=== PATIENT | female | born 1965 | race African-American/Black ===

== ENCOUNTER 2020-07-27 14:25 | Outpatient (CLI) | payer OTHER, SELFPAY ==
--- NOTE | ~2020-07-27 | MM_ITS ---
EXAMINATION: MM screening [facility] BI w shweta HISTORY: Screening mammogram TECHNIQUE: Craniocaudal and mediolateral oblique 3-D tomosynthesis images were obtained and synthetic 2-D images were generated. CAD analysis was submitted and interpreted. COMPARISON: 04/20/2019, 04/15/2018, 04/13/2017 BREAST PARENCHYMAL COMPOSITION: There are scattered areas of fibroglandular density. FINDINGS: There is no evidence of suspicious mass, calcification, or architectural distortion to sugg est malignancy in either breast. There has been no suspicious interval change. IMPRESSION: 1. No mammographic evidence of malignancy. 2. Recommend routine screening mammography in one year. BI-RADS Category 1: Negative Reviewed, dictated and finalized at location A.
== END 2020-07-27 14:26 | disposition home or self-care (01) ==
LOC: ANHIMG 14:27
PROVIDERS: PCP Family Medicine; Visit Provider Family Medicine
DX: Z12.31 Encounter for screening mammogram for malignant neoplasm of breast (principal)
CPT/HCPCS: 77063; 77067

== ENCOUNTER 2021-09-09 14:45 | Outpatient (CLI) | payer OTHER, SELFPAY ==
--- NOTE | ~2021-09-09 | MM_ITS ---
EXAMINATION: MM screening [facility] BI w shweta HISTORY: Screening mammogram TECHNIQUE: Craniocaudal and mediolateral oblique 3-D tomosynthesis images were obtained and synthetic 2-D images were generated. CAD analysis was submitted and interpreted. COMPARISON: 07/27/2020, 04/20/2019, 04/15/2018 bilateral screening mammogram examinations BREAST PARENCHYMAL COMPOSITION: There are scattered areas of fibroglandular density. FINDINGS: There is no evidence of suspicious mass, calcification, or architectural distortion to sugg est malignancy in either breast. There has been no suspicious interval change. IMPRESSION: 1. No mammographic evidence of malignancy. 2. Recommend routine screening mammography in one year. BI-RADS Category 1: Negative Reviewed, dictated and finalized at location A. 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
== END 2021-09-09 14:46 | disposition home or self-care (01) ==
LOC: ANHIMG 14:46
PROVIDERS: PCP Family Medicine; Visit Provider Family Medicine
DX: Z12.31 Encounter for screening mammogram for malignant neoplasm of breast (principal)
CPT/HCPCS: 77063; 77067

== ENCOUNTER 2022-10-07 14:56 | Outpatient (CLI) | payer OTHER, SELFPAY ==
--- NOTE | ~2022-10-07 | MM_ITS ---
EXAMINATION: MM screening [facility] BI w shweta HISTORY: Screening mammogram TECHNIQUE: Craniocaudal and mediolateral oblique 3-D tomosynthesis images were obtained and synthetic 2-D images were generated. CAD analysis was submitted and interpreted. COMPARISON: 09/09/2021, 07/27/2020, 04/20/2019 BREAST PARENCHYMAL COMPOSITION: There are scattered areas of fibroglandular density. FINDINGS: No suspicious mass, calcification, or architectural distortion are identified in either ashley ast to suggest malignancy. There has been no suspicious interval change. IMPRESSION: 1. No mammographic evidence of malignancy. 2. Recommend routine screening mammography in one year. BI-RADS Category 1: Negative Reviewed, dictated and finalized at location D. 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
== END 2022-10-07 14:57 | disposition home or self-care (01) ==
PROVIDERS: PCP Family Medicine; Visit Provider Physician Assistant
DX: Z12.31 Encounter for screening mammogram for malignant neoplasm of breast (principal)
CPT/HCPCS: 77063; 77067

== ENCOUNTER 2024-01-05 16:06 | Outpatient (CLI) | payer OTHER, SELFPAY ==
--- NOTE | ~2024-01-05 | MM_ITS ---
EXAMINATION: MM screening [facility] BI w shweta HISTORY: Screening mammogram TECHNIQUE: Craniocaudal and mediolateral oblique 3-D tomosynthesis images were obtained and synthetic 2-D images were generated. CAD analysis was submitted and interpreted. COMPARISON: 10/07/2022, 09/09/2021 bilateral screening mammogram examinations BREAST PARENCHYMAL COMPOSITION: There are scattered areas of fibroglandular density. FINDINGS: There is no evidence of suspicious mass, calcification, or architectural distortion to sugg est malignancy in either breast. There has been no suspicious interval change. IMPRESSION: 1. No mammographic evidence of malignancy. 2. Recommend routine screening mammography in one year. BI-RADS Category 1: Negative Reviewed, dictated and finalized at location A. 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
== END 2024-01-05 16:07 | disposition home or self-care (01) ==
PROVIDERS: PCP Family Medicine; Visit Provider Family Medicine
DX: Z12.31 Encounter for screening mammogram for malignant neoplasm of breast (principal)
CPT/HCPCS: 77063; 77067

== ENCOUNTER 2025-04-06 14:55 | Outpatient (CLI) | payer OTHER, SELFPAY ==
--- NOTE | ~2025-04-06 | MM_ITS ---
EXAMINATION: MM screening [facility] BI w shweta HISTORY: Screening TECHNIQUE: Craniocaudal and mediolateral oblique 3-D tomosynthesis images were obtained and synthetic 2-D images were generated. CAD analysis was submitted and interpreted. COMPARISON: 01/05/2024 through 04/20/2019. BREAST PARENCHYMAL COMPOSITION: Breast composed of scattered areas of fibroglandular density FINDINGS: There is no evidence of suspicious mass, calcification, or architectural distortion to sugg est malignancy in either breast. There has been no suspicious interval change. IMPRESSION: 1. No mammographic evidence of malignancy. 2. Recommend routine screening mammography in one year. BI-RADS Category 1: Negative Reviewed, dictated and finalized at location B.
--- OUTSIDE RECORDS SUMMARY | 2025-04-06 15:33 | XMS_ITS | Patient Health Record ---
Author Organization 1 OF [facility] Address [address] [place] [address] Care Team Providers Care Rehabilitation Program Coordinator Name Role Phone Archie Infante Primary Care Provider Marco Worrell Unavailable Allergies No Known Allergies Reason For Referral No Information Medications Medication SIG (Take, Route, Fr equency, Duration) Notes Start Date End Date Status Vitamin D-3 Not-Taki ng Calcium Not-Taking Acidophilus Not-Taki ng Ferrous Gluconate No t-Taking QH Not-Taking Multivitamin Not-Arnav ing Vitamin B12 Not-Taki ng Biotin Not-Taking Ranitidine Not-Takin g Voltaren gel 1% 4 grams to affected area of each foot Transdermal 4 times a day for 30 days 04/15/2016 Not-Taking Fish Oil Not-Taking Problems Problem Type SNOMED Code ICD Code Onset Dates Problem Status W/U Status Risk Notes Problem 858666181 Secondary osteoarthritis, 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 [place], [place] [id number] Frandy, Roscle Spouse - patient is the spouse of the insured Medical (General) History Medical History History ICD Code Hip pain Chronic Heartburn Surgical History Surgery Date(Month/Year) Julián Reaves Tubal Ligation
--- OUTSIDE RECORDS SUMMARY | 2025-04-06 15:33 | XMS_ITS | Referral Summary ---
Author Organization [facility] Address [address] [place] [address] Care Team Providers Care Kai [place] Name Role Phone Archie Infante MD Primary Care Provider Allergies Active Allergy Reactions Criticality Noted Date Comments Meloxicam Other (See comments) Low 06/24/2018 Gastric ulcers Nsaids (Non-Steroidal Anti-Inflammatory Drug) Other (See comments) Low 06/24/2018 Gastric ulcers Medications beclomethasone (QNASL) 80 mcg/actuation HFA aerosol inhaler Active fexofenadine (KELLIE) 180 mg tablet Take 180 mg by mouth daily. Active multivitamin tabletIndicatio ns:Vitamin Deficiency Prevention Take 1 tablet by mouth. Active biotin 1 mg capsule Take by mouth. Active zinc 50 mg tablet Take 1 tablet by mouth. Active vit D3-vit Q-mmdokedvx-ptk s [phone] xxif-dzb-ek-mg tablet Take 1 tablet by mouth. 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 0 06/08/2018 Overview (06/08/2018): Added automatically from request for surgery [id number] Current tear of lateral cartilage or meniscus of knee 06/08/2018 Overview (06/08/2018): Added automatically from request for surgery [id number] Chondromalacia of left patella 01/28/2018 Localized chondromalacia 01/28/2018 Medial meniscus, posterior horn derangement, lef t 01/28/2018 Effusion of knee 01/28/2018 Synovial cyst of knee 01/28/2018 Social History Tobacco Use Types Packs/Day Years Used Date Smoking Tobacco: Never Smokeless Tobacco: Never Alcohol Use Standard Drinks/Week Comments No 0 (1 standard drink = 0.6 oz pur e alcohol) Comments No Sex and Gender Information Value Date Recorded Sex Assigned at Not on file 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 Gender Identity Female 04/21/2024 9:50 PM CDT Sexual Orientation Straight 04/21/2024 9: 50 PM CDT Last Filed Vital Signs Vital Sign Reading Time Taken Comments Blood Pressure 122/76 07/02/2018 2:35 PM CDT Pulse 64 07/02/2018 2:40 PM CDT Temperature 37.1 C (98.8 F) 07/02/2018 1:46 PM CDT Respiratory Rate 14 07/02/2018 2:40 PM CDT Oxygen Saturation 99% 07/02/2018 2:40 PM CDT Inhaled Oxygen Concentration - - Weight 59 kg (130 lb) 08/19/2018 11:17 AM CDT Height 160 cm (5' 3) 08/19/2018 11:17 AM CDT Body Mass Index 23.03 08/19/2018 11:17 AM CDT Plan of Treatment Not on file Insurance [facility] [address] [place] CHOICE PLUS Advance Directives For more information, please contact: [phone] * Full Code (Latest Code Status on File) Date Activated Date Inactivated Comments 07/02/2018 1:54 PM 07/02/2018 5:09 PM Care Teams Kai Whakaruruhau Relationship Specialty Start Date End Date Archie Infante MD [address] [place] [address] PCP - General Family Medicine 08/02/18
--- OUTSIDE RECORDS SUMMARY | 2025-04-06 15:33 | XMS_ITS | Clinical Summary ---
Author Organization [facility] Address [address] [place] [address] Care Team Providers Care Special Needs Nanny Name Role Phone Archie Infante MD Primary Care Provider [phone] Allergies Active Allergy Reactions Criticality Noted Date [...] 1 tablet by mouth. Active vit D3-vit P-ohaiwjmsx-sgj s [phone] zyus-fhz-iy-mg tablet Take 1 tablet by mouth. Active [...] (06/08/2018): Added automatically from request for surgery [id number] Current tear of lateral cartilage or meniscus of knee 06/08/2018 Overview (06/08/2018): Added automatically from request for surgery [id number] Chondromalacia of left patella 01/28/2018 Localized chondromalacia 01/28/2018 Medial meniscus, posterior horn derangement, lef t 01/28/2018 Effusion of knee 01/28/2018 Synovial cyst of knee 01/28/2018 Surgical History Surgery Date Site/Laterality Comments BUNIONECTOMY TUBAL LIGATION TOE SURGERY Left with pinning ECTOPIC SURGERY Medical History Medical History Date Comments Acid reflux well controlled Arthritis Allergic rhinitis Gastric ulcer 2015 h/o Family History Medical History Relation Name Comments Cancer Brother Family history of malignant neoplasm - (Added by TW Conv) Arthritis Mother Family history of arthritis - (Added by TW Conv) Diabetes Mother Family history of diabetes mellitus - (Added by TW Conv) Lung disease Mother Lung trouble - (Added by TW Conv) Lung disease Sister 1 Lung trouble - (Added by TW Conv) Cancer Sister 2 Family history of malignant neoplasm - (Added by TW Conv) Relation Name Status Comments Brother Mother Sister 1 Sister 2 Social History Tobacco Use Types Packs/Day Years Used Date Smoking Tobacco: Never Smokeless Tobacco: Never Alcohol Use Standard Drinks/Week Comments No 0 (1 standard drink = 0.6 oz pur e alcohol) Comments No Sex and Gender Information Value Date Recorded Sex Assigned at Not on file 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 Gender Identity Female 04/21/2024 9:50 PM CDT Sexual Orientation Straight 04/21/2024 9: 50 PM CDT Obstetrics History Last Filed Vital Signs Vital Sign Reading [...] 08/19/2018 11:17 AM CDT Plan of Treatment Health Maintenance Due Date Last Done Comments Breast Cancer Screening-Mammogram 1965 Cervical Cancer Screening 1965 Colon Cancer Screening-Colonoscopy 1965 Depression Screening 1965 Hepatitis C Screening 1965 Hepatitis B Screening 1983 Regular Well Visit/Exam 18-64 1983 Zoster Vaccine (1 of 2) 2015 Covid-19 Vaccine ( season) 2024 08/16/2023, 08/09/2022, 02/07/2022, Additional history exists Influenza Vaccine (Season Ended) 2025 08/16/2023, 08/09/2022, 08/29/2021, Additional history exists DTaP/Tdap/Td Vaccine (3 - Td or Tdap) 05/31/2032 05/31/2022, 04/11/2021 Pneumococcal vaccine <65 Aged Out No longer eligible based on patient's age to complete this topic Insurance [facility] CHOICE PLUS [facility] CHOICE PLUS Advance Directives For more information, please contact: [phone] * Full Code (Latest Code Status on File) Date Activated Date Inactivated Comments 07/02/2018 1:54 PM 07/02/2018 5:09 PM Care Teams Special Needs Nanny Relationship Specialty Start Date End Date Archie Infante MD [address] [place] [address] PCP - General Family Medicine 08/02/18
== END 2025-04-06 14:56 | disposition home or self-care (01) ==
LOC: ANHIMG 14:57
PROVIDERS: PCP Family Medicine; Visit Provider Family Medicine
DX: Z12.31 Encounter for screening mammogram for malignant neoplasm of breast (principal)
CPT/HCPCS: 77063; 77067

== ENCOUNTER 2025-05-03 14:10 | Outpatient (CLI) | payer OTHER, SELFPAY ==
--- NOTE | ~2025-05-03 | XR_ITS ---
Cervical Spine: AP, lateral, open-mouth views Clinical History: Pain Findings: The normal lordotic curve is maintained. The vertebral bodies and posterior elements appea r intact. The intervertebral disc spaces are well maintained. Mild facet joint degenerative change p resent. Pre-vertebral soft tissues are unremarkable. Impression: Mild facet arthropathy. Reviewed, dictated and finalized at location . Impression: Mild facet arthropathy.
== END 2025-05-03 14:11 | disposition home or self-care (01) ==
LOC: GOSHIMG 14:10
PROVIDERS: PCP Family Medicine; Visit Provider Nurse Practitioner Family
DX: M47.812 Spondylosis without myelopathy or radiculopathy, cervical region (principal)
CPT/HCPCS: 72040